=== PATIENT | female | born 1990 | race Caucasian/White ===

== ENCOUNTER 2020-12-11 03:50 | Observation (INO) | payer MEDICAID, SELFPAY ==
[~2020-12-11] VITALS: Ht 167.6 cm; Wt 89.8 kg
[2020-12-11] MEDS ORDERED: cefTRIAXone 1 GM IVPB PREMIX 50 ML IV ONE (04:45)
[2020-12-11] MEDS ORDERED: TERBUTALINE SULFATE 1 MG/ML VIAL SUBCUT PRN (04:45)
[2020-12-11] MEDS ORDERED: cefTRIAXone 1 GM VIAL ONE (05:31)
[2020-12-11] MEDS: LR 1,000 ML IV SCH ×2 (05:45→07:17)
== END 2020-12-11 08:36 | disposition home or self-care (01) ==
LOC: SPU 03:50
PROVIDERS: ADMIT Obstetrics & Gynecology; ATTEND Obstetrics & Gynecology
DX: O62.9 Abnormality of forces of labor, unspecified (principal); Z3A.32 32 weeks gestation of pregnancy
CPT/HCPCS: 81002; 96361; 96365; 96372; G0378; J0696 ×2; J3105